=== PATIENT | female | born 1990 | race Caucasian/White ===

== ENCOUNTER 2019-08-13 05:36 | Inpatient (IN) | payer BC ==
[~2019-08-13] VITALS: Ht 160 cm; Wt 177.4 kg
[2019-08-13] MEDS ORDERED: SODIUM CHLORIDE 0.9% 1,000 ML IV ONE (07:33)
[2019-08-13 08:33] LABS: CHLORIDE 109 mEq/L (98-107)
[2019-08-13 08:42] LABS: EOSINOPHILS % 0.6 % (0.0-5.0); LYMPHOCYTES % 17.2 % (20.0-50.0); MEAN CORPUSCULAR HEMOGLOBIN 21.5 pg (28.0-32.0); MEAN CORPUSCULAR VOLUME 71.6 fL (81.0-99.0); MEAN PLATELET VOLUME 10.7 fl (7.4-10.4); MONOCYTES % 4.4 % (2.0-8.0); NEUTROPHILS % 76.8 % (40.0-76.0); PLATELET 128 x1000/uL (130-400); RED BLOOD CELL COUNT 2.82 mill/uL (4.2-5.4); RED CELL DISTRIBUTION WIDTH 17.1 % (11.6-14.6)
[2019-08-13 08:48] LABS: HEMATOCRIT. 20.2 % (36.0-48.0); HEMOGLOBIN. 6.1 g/dL (12.0-16.0)
[2019-08-13] MEDS ORDERED: SODIUM CHLORIDE 0.9% 1,000 ML IV SCH (12:23)
[2019-08-13] MEDS ORDERED: ONDANSETRON HCL 4MG/2ML INJ IV PRN (12:30)
[2019-08-13 12:47] LABS: TOTAL IRON BINDING CAPACITY 339 ug/dL (250-450)
[2019-08-13] MEDS ORDERED: FERROUS SULFATE 325MG TABLET PO NR (13:00)
[2019-08-13 15:20] VITALS: BP 125/68
[2019-08-13 16:30] VITALS: BP 125/68
[2019-08-13] MEDS: FERROUS SULFATE 325MG TABLET PO SCH (17:43)
[2019-08-13 21:03] LABS: MEAN CORPUSCULAR HEMOGLOBIN 22.7 pg (28.0-32.0); PLATELET 131 x1000/uL (130-400); RED BLOOD CELL COUNT 2.81 mill/uL (4.2-5.4); RED CELL DISTRIBUTION WIDTH 18.7 % (11.6-14.6)
[2019-08-13 21:06] LABS: HEMATOCRIT 20.8 % (36.0-48.0); HEMOGLOBIN 6.4 g/dL (12.0-16.0)
[2019-08-13 21:09] LABS: PROTHROMBIN TIME 10.5 sec (9.6-11.0)
[2019-08-14] VITALS (8 sets, daily range): BP systolic 104–116; BP diastolic 39–65
[2019-08-14] MEDS: ACETAMINOPHEN 325MG TABLET PO PRN ×2 (00:42→11:18)
[2019-08-14 06:53] LABS: BASOPHILS % 1.1 % (0.0-2.0); HEMOGLOBIN. 7.6 g/dL (12.0-16.0); LYMPHOCYTES % 23.3 % (20.0-50.0); MEAN CORPUSCULAR HEMOGLOBIN 24.4 pg (28.0-32.0); MEAN CORPUSCULAR VOLUME 77.3 fL (81.0-99.0); MONOCYTES % 4.9 % (2.0-8.0); NEUTROPHILS % 69.7 % (40.0-76.0); RED CELL DISTRIBUTION WIDTH 19.5 % (11.6-14.6)
[2019-08-14 07:50] LABS: CHLORIDE 112 mEq/L (98-107)
[2019-08-14] MEDS: FERROUS SULFATE 325MG TABLET PO SCH ×2 (08:52→12:44)
[2019-08-14 11:35] LABS: HEMATOCRIT 21.6 % (36.0-48.0); HEMOGLOBIN 6.6 g/dL (12.0-16.0)
[2019-08-14 12:48] LABS: PLATELET 133 x1000/uL (130-400)
== END 2019-08-14 13:17 | disposition left against medical advice (07) | DRG 760 ==
LOC: ER 05:36 → 6EST 12:13 → EDBEDREQ 12:21 → EDBEDREQTM 12:21
PROVIDERS: ADMIT Internal Medicine; ATTEND Internal Medicine
PROC: 30233N1 Transfusion of Nonautologous Red Blood Cells into Peripheral Vein, Percutaneous Approach (ICD-10-PCS; principal; 2019-08-13)
DX: N92.1 Excessive and frequent menstruation with irregular cycle (principal); D62 Acute posthemorrhagic anemia; N93.8 Other specified abnormal uterine and vaginal bleeding; I95.9 Hypotension, unspecified; R55 Syncope and collapse; Z53.29 Procedure and treatment not carried out because of patient's decision for other reasons
CPT/HCPCS: 36415; 71045; 80053; 82728; 83540; 83550; 83735; 84484; 85014; 85018; 85025; 85027; 85384; 86850; 86900; 86920; 93005; 96360; 99285; J7030; P9016